=== PATIENT | female | born 1995 | race Caucasian/White ===

== ENCOUNTER 2019-11-08 12:58 | Outpatient (CLI) | payer OTHER, SELFPAY ==
--- NOTE | ~2019-11-08 | XR_ITS ---
EXAMINATION: XR elbow LT min 3V DATE: 11/08/2019 13:28 INDICATION: Left elbow pain and numbness. TECHNIQUE: 4 views of left elbow were obtained. COMPARISON: None. FINDINGS: Bone alignment is normal. No fracture. Joint spaces are well maintained. There is no elbow joint effusion. IMPRESSION: 1. Normal left elbow. Reviewed, dictated and finalized at location A. BILITATION CASEWORKER IMPRESSION: 1. Normal left elbow.
== END 2019-11-08 12:59 | disposition home or self-care (01) ==
LOC: CHSIMG 13:03
PROVIDERS: PCP Internal Medicine; Visit Provider Nurse Practitioner Family
DX: M25.522 Pain in left elbow (principal); R20.0 Anesthesia of skin
CPT/HCPCS: 73080

== ENCOUNTER 2019-12-07 13:19 | Outpatient (CLI) | payer OTHER, SELFPAY ==
--- NOTE | 2019-12-07 13:45 | ECHO_ITS ---
Patient Info Name: Lisbet Almanza Age: 24 years : 1995 Gender: Female Ht: 67 in Wt: 150 lbs BSA: 1.80 m2 HR: 53 bpm BP: 104 / 71 mmHg Technical Quality: Good Exam Date: 12/07/2019 12:50 PM Exam Location: [facility] Patient Status: Outpatient Admit Date: 12/07/2019 Staff Ordering Physician: Bimal Kim MD Electrical Panel Builder: Steve Morales RDCS, RT Attending Provider: Bimal Kim MD Referring Physician: Julio ESCAMILLA; Exam Type: CA echo doppler color flow Study Info Indications G45.8 - Other transient cerebral ischemic attacks and related syndromes Complete two-dimensional, color flow and Doppler transthoracic echocardiogram is performed. Summary 1. Left ventricular chamber dimension is normal. 2. Left ventricular systolic function is normal, estimated at 55-60%. 3. The left ventricular diastolic function is normal. 4. E/e' 5 is not elevated. 5. Global longitudinal strain is slightly abnormal at -16.7%. 6. There is trace pulmonic regurgitation. Left Ventricle E/e' 5 is not elevated. Global longitudinal strain is slightly abnormal at -16.7%. Left ventricular chamber dimension is normal. Left ventricular systolic function is normal, estimated at 55-60%. The left ventricular diastolic function is normal. Right Ventricle Right ventricular chamber dimension is normal. Right ventricular systolic function is normal. Left Atria Left atrial chamber dimension is normal. Right Atria Right atrial chamber dimension is normal. Aortic Valve The aortic valve is trileaflet. There is no aortic valve stenosis. There is no aortic valve regurgitation. Pulmonic Valve There is trace pulmonic regurgitation. Mitral Valve There is no mitral valve stenosis. There is no mitral valve regurgitation. Tricuspid Valve There is no tricuspid valve regurgitation. Pericardium/Pleural There is no pericardial effusion. Inferior Vena Cava Normal inferior vena cava with >50% collapse upon inspiration consistent with normal right atrial pressure, 5 mmHg. Aorta The aortic root size at the sinus of Valsalva is normal. Left Ventricular Outflow Tract Name Value Normal LVOT 2D LVOT Diameter 1.9 cm LVOT Doppler LVOT Peak Velocity 109 cm/s LVOT Peak Gradient 5 mmHg LVOT Mean Gradient 2 mmHg LVOT VTI 22 cm LVOT VTI/AV VTI Ratio 1.0 LVOT Stroke Volume 63 ml Pulmonic Valve Name Value Normal PV Doppler PV Peak Velocity 90 cm/s PV Peak Gradient 3 mmHg Mitral Valve Name Value Normal
== END 2019-12-07 13:20 | disposition home or self-care (01) ==
PROVIDERS: PCP Internal Medicine; Visit Provider Internal Medicine
DX: G45.9 Transient cerebral ischemic attack, unspecified (principal)
CPT/HCPCS: 93306

== ENCOUNTER 2019-12-27 14:45 | Outpatient (CLI) | payer OTHER, MEDICARE, SELFPAY ==
--- NOTE | ~2019-12-27 | MR_ITS ---
EXAMINATION: MR brain IAC wo/w con EXAM DATE: 12/27/2019 16:30 INDICATION: Transient episode of left hemiparesis. TECHNIQUE: Magnetic resonance imaging (MRI) of the brain/brain stem obtained without contrast. Sagit lori T1, axial diffusion, gradient echo (T2*), T1, T2, FLAIR sequences obtained. Patient was then inj ected with 10 cc intravenous Multihance contrast. Axial and coronal postcontrast T1 weighted sequence s obtained. There is no prior study for comparison. FINDINGS: There are about 8 scattered punctate subcortical T2 hyperintensities, a non-specific findin g with differential diagnosis including premature chronic small vessel ischemic disease (especially i f the patient has cardiovascular risk factors), migraine headaches, demyelinating disease such as mul tiple sclerosis or acute disseminated encephalomyelitis (ADEM), vasculopathy, lyme's disease or react victor m astrocytosis (gliosis) secondary to nonspecific etiology. There are no areas of restricted diffusion to suggest acute infarction. There is no acute hemorrhage seen on the T2*, a hemosiderin sensitive sequence. No intraparenchymal brain mass. The ventricles a re normal in size. There are no extra-axial collections. Flow voids are seen in the cerebral arteri es on the T2-weighted sequences consistent with their expected patency. The orbits are unremarkable. Soft tissue is unremarkable. There are no areas of abnormal enhancement on the post contrast image s. IMPRESSION: Scattered tiny nonspecific subcortical white matter hyperintensities. Reviewed, dictated and finalized at location A. IMPRESSION: Scattered tiny nonspecific subcortical white matter hyperintensitie s.
== END 2019-12-27 14:46 | disposition home or self-care (01) ==
LOC: CHSIMG 14:47
PROVIDERS: PCP Internal Medicine; Visit Provider Internal Medicine
DX: G45.9 Transient cerebral ischemic attack, unspecified (principal)
CPT/HCPCS: 70553; A9577

== ENCOUNTER 2020-09-05 11:58 | Outpatient (CLI) | payer MEDICARE, SELFPAY ==
[2020-09-05 16:30] LABS: SARS-CoV-2 Ag Negative (Negative)
== END 2020-09-05 11:59 | disposition home or self-care (01) ==
LOC: CHSLAB 12:01
PROVIDERS: PCP Internal Medicine; Visit Provider Internal Medicine
DX: R51.9 Headache, unspecified (principal); R09.89 Other specified symptoms and signs involving the circulatory and respiratory systems; Z20.828 Contact with and (suspected) exposure to other viral communicable diseases
CPT/HCPCS: 87426

== ENCOUNTER 2020-12-13 10:29 | Outpatient (CLI) | payer MEDICARE, OTHER, SELFPAY ==
--- NOTE | ~2020-12-13 | US_ITS ---
EXAMINATION: US soft tissue head and neck DATE: 12/13/2020 11:30 INDICATION: Neck mass. TECHNIQUE: Multiple grayscale and Doppler ultrasound images of the neck were obtained. COMPARISON: None FINDINGS: There is no abnormal mass or lymphadenopathy in the patient's area of concern in the anteri or neck. IMPRESSION: 1. No abnormal mass or lymphadenopathy in the patient's area of concern. Reviewed, dictated and finalized at location A.
== END 2020-12-13 10:30 | disposition home or self-care (01) ==
PROVIDERS: PCP Internal Medicine; Visit Provider Internal Medicine
DX: R22.1 Localized swelling, mass and lump, neck (principal)
CPT/HCPCS: 76536

== ENCOUNTER 2021-12-19 15:58 | Outpatient (CLI) | payer MEDICARE, SELFPAY ==
--- NOTE | ~2021-12-19 | XR_ITS ---
EXAMINATION: XR chest 2V DATE: 12/19/2021 16:19 INDICATION: Shortness of breath TECHNIQUE: PA and lateral views of the chest were obtained. COMPARISON: None FINDINGS: The lungs are clear with no focal airspace opacities, pulmonary edema, pleural effusion or pneumothor ax. The cardiomediastinal silhouette is normal. Mild thoracic spondylosis. IMPRESSION: 1. No acute cardiopulmonary disease. Reviewed, dictated and finalized at location A.
== END 2021-12-19 15:59 | disposition home or self-care (01) ==
LOC: CHSIMG 16:00
PROVIDERS: PCP Internal Medicine; Visit Provider Nurse Practitioner Family
DX: R06.00 Dyspnea, unspecified (principal)
CPT/HCPCS: 71046

== ENCOUNTER 2021-12-25 07:53 | Outpatient (CLI) | payer MEDICARE, SELFPAY ==
[2021-12-25 08:12] LABS: Basophils Absolute Auto 0.09 K/mm3 (0.00-0.10); Basophils Percent Auto 0.9 % (0.0-1.0); Eosinophils Absolute Auto 0.16 K/mm3 (0.02-0.50); Eosinophils Percent Auto 1.6 % (1.0-6.0); Hematocrit 39.4 % (35.0-49.0); Hemoglobin 13.2 g/dL (12.0-15.0); Immature Granulocyte Absolute 0.03 K/mm3 (0.00-0.00); Immature Granulocyte Percent A 0.3 % (0.0-0.0); Lymphocytes Absolute Auto 2.78 K/mm3 (1.10-4.50); Lymphocytes Percent Auto 28.5 % (18.0-42.0); Mean Corpuscular HGB Conc 33.5 g/dL (32.0-36.0); Mean Corpuscular Hemoglobin 29.9 pg (27.0-31.0); Mean Corpuscular Volume 89.1 fL (78.0-102.0); Monocytes Absolute Auto 0.55 K/mm3 (0.10-0.90); Monocytes Percent Auto 5.6 % (2.0-11.0); Neutrophils Absolute Auto 6.1 K/mm3 (1.7-7.2); Neutrophils Percent Auto 63.1 % (50.0-70.0); Platelet Count Result 292 K/mm3 (150-420); Red Blood Count 4.42 M/mm3 (4.20-5.40); Red Cell Distribution Width 11.9 % (11.6-14.4); White Blood Count 9.7 K/mm3 (4.8-10.8)
[2021-12-25 08:16] LABS: Add Urine Microscopic? YES; Appearance Urine Sl Cloudy (Clear); Bilirubin Urine Negative (Negative); Blood Urine 3+ (Negative); Color Urine Yellow (Yellow); Glucose Urine UA Negative (Negative); Ketones Urine Negative (Negative); Leukocyte Esterase Ur Negative LEU/UL (Negative); Nitrate Urine Negative (Negative); Protein Urine Negative (Negative); Specific Grav Ur >= 1.030 (1.010-1.020); Urobilinogen Urine 0.2 mg/dL (0.2-1.0)
[2021-12-25 08:21] LABS: Squamous Epithelial Cell Urine Few /hpf (Few); WBC Urine 0-3 /hpf (0-3)
[2021-12-25 08:22] LABS: Bacteria Urine 2+ /hpf
[2021-12-25 09:22] LABS: Alanine Aminotransferase 23 U/L (14-59); Albumin Level 3.9 g/dL (3.4-5.0); Alkaline Phosphatase 69 U/L (46-116); Anion Gap 10 mmol/L (8-16); Aspartate Amino Transferase 18 U/L (15-37); Bilirubin,Total 0.4 mg/dL (0.00-1.00); Blood Urea Nitrogen 15 mg/dL (7-18); Calcium 8.8 mg/dL (8.5-10.1); Carbon Dioxide 25 mmol/L (21-32); Chloride 103 mmol/L (98-108); Cholesterol 169 mg/dL (0-200); Estimated Glomerular Filt Rate > 60; Glucose 85 mg/dL (70-99); HDL Direct 48 mg/dL (40-60); LDL Cholesterol Calculated 111 mg/dL (<130); Osmolality Calculated 285 mOsm/kg (285-295); Potassium 4.4 mmol/L (3.5-5.1); Sodium 138 mmol/L (136-145); Thyroid Stimulating Hormone 0.93 uIU/mL (0.36-3.74); Total Protein 7.6 g/dL (6.4-8.2); Triglycerides 50 mg/dL (0-150)
== END 2021-12-25 07:54 | disposition home or self-care (01) ==
LOC: CHSCARD 07:57
PROVIDERS: PCP Internal Medicine; Visit Provider Nurse Practitioner Family
DX: R06.00 Dyspnea, unspecified (principal); J31.0 Chronic rhinitis; F34.1 Dysthymic disorder; Z13.6 Encounter for screening for cardiovascular disorders
CPT/HCPCS: 36415; 80053; 80061; 81001; 84439; 84443; 85025; 94060; 94726; 94729

== ENCOUNTER 2022-01-30 09:53 | Outpatient (CLI) | payer MEDICARE, SELFPAY ==
[2022-01-30 10:23] LABS: Basophils Absolute Auto 0.05 K/mm3 (0.00-0.10); Basophils Percent Auto 0.7 % (0.0-1.0); Eosinophils Absolute Auto 0.13 K/mm3 (0.02-0.50); Eosinophils Percent Auto 1.9 % (1.0-6.0); Hematocrit 35.5 % (35.0-49.0); Immature Granulocyte Absolute 0.01 K/mm3 (0.00-0.00); Immature Granulocyte Percent A 0.1 % (0.0-0.0); Lymphocytes Absolute Auto 2.07 K/mm3 (1.10-4.50); Lymphocytes Percent Auto 29.9 % (18.0-42.0); Mean Corpuscular HGB Conc 33.8 g/dL (32.0-36.0); Mean Corpuscular Hemoglobin 30.1 pg (27.0-31.0); Mean Platelet Volume 9.5 fl (9.2-11.8); Monocytes Absolute Auto 0.38 K/mm3 (0.10-0.90); Monocytes Percent Auto 5.5 % (2.0-11.0); Neutrophils Absolute Auto 4.3 K/mm3 (1.7-7.2); Neutrophils Percent Auto 61.9 % (50.0-70.0); Platelet Count Result 249 K/mm3 (150-420); Red Blood Count 3.99 M/mm3 (4.20-5.40); Red Cell Distribution Width 11.9 % (11.6-14.4); White Blood Count 6.9 K/mm3 (4.8-10.8)
[2022-01-30 10:36] LABS: D Dimer 0.45 mg/L (0.19-0.50)
[2022-01-30 10:51] LABS: Creatine Kinase 45 U/L (26-192); Creatine Kinase MB < 0.50 ng/mL (0.00-5.00); Troponin I 9.4 ng/L (0.00-60.4)
[2022-01-30 10:52] LABS: CRP < 0.2 mg/dL (0.0-0.9)
[2022-02-02 18:04] LABS: H pylori, Urea Breath NOT DETECTED (NOT DETECTED)
== END 2022-01-30 09:54 | disposition home or self-care (01) ==
LOC: CHSLAB 09:55
PROVIDERS: PCP Internal Medicine; Visit Provider Nurse Practitioner Family
DX: R06.02 Shortness of breath (principal); R07.9 Chest pain, unspecified; K21.9 Gastro-esophageal reflux disease without esophagitis
CPT/HCPCS: 36415; 82550; 82553; 83013; 84484; 85025; 85380; 86140

== ENCOUNTER 2022-03-17 00:53 | Day surgery (SDC) | payer MEDICARE, SELFPAY ==
[2022-03-02 14:48] VITALS: BMI 29.7
[2022-03-17 07:56] VITALS: BP 109/58; PULSE 86; RESP 18; TEMP 36.4; O2SAT 100; BMI 30.3
[2022-03-17] MEDS: LACTATED RINGERS 1,000 ML 150 ML IV CONT (08:06)
--- NOTE | 2022-03-17 08:12 | WPDANESEPPF ---
Anes - Initial Pre Proc Eval Procedure: Operation Date: 03/17/22 09:00 Proposed Procedures p Esophagogastroduodenoscopy - Steve Joiner MD Date/Time: 03/17/22 08:12 Surgeon: Steve Joiner MD Pre Op Diagnosis: GERD Patient Data Age: 27 Gender: F Height: 1.7 m Weight: 87.8 kg Last Vital Signs Temp 36.4 C L 03/17/22 07:56 Pulse 86 03/17/22 07:56 Resp 18 03/17/22 07:56 BP 109/58 L 03/17/22 07:56 Pulse Ox 100 03/17/22 07:56 O2 Del Method Room Air 03/17/22 07:56 Allergies Allergy/AdvReac Type Severity Reaction Status Date / Time No Known Allergies Allergy Verified 03/17/22 07:55 Home Medications Medication Instructions Recorded Confirmed Type albuterol sulfate 90 mcg/actuation 1 inh inhalation Q4-6H PRN 03/02/22 03/02/22 History aerosol inhaler Shortness Of Breath cetirizine 10 mg tablet (Zyrtec) 10 mg PO DAILY 03/02/22 03/02/22 History fluoxetine 20 mg capsule (Prozac) 20 mg PO DAILY 03/02/22 03/02/22 History fluticasone 100 mcg-salmeterol 50 2 inh inhalation BID 03/02/22 03/02/22 History mcg/dose blistr powdr for inhalation omeprazole magnesium 20 mg 40 mg PO DAILY 03/02/22 03/02/22 History tablet,delayed release (Prilosec OTC) clonazepam 0.25 mg disintegrating 0.25 mg PO DAILY PRN Anxiety 03/17/22 03/17/22 History tablet Patient hx anesthesia problems: none Family hx anesthesia problems: none Results Review: All pre-operative results and documents have been reviewed as part of the pre-operative evaluation. [facility] Past Medical History Medical History (Updated 03/17/22 @ 08:16 by Kofi León MD) Asthma Surgical History Surgical History (Updated 03/17/22 @ 08:16 by Kofi León MD) Hx of tonsillectomy Social History Social History Smoking status: Never smoker Living arrangements: with family Spiritual care concerns: No Anes - Eval Final PreProcedure Day of Procedure 03/17/22 08:12 Patient weight: obese Heart: regular rate and rhythm Lungs: clear to auscultation Neurological: alert and oriented Last oral intake: >/= 8 hours ASA classification: II Emergent: no Anesthetic plan: proceed Anesthesia type and monitoring: general GIVS and standard monitoring Results Review: All pre-operative results and documents have been reviewed as part of the pre-operative evaluation. Informed Consent: The patient's anesthetic plan and its attendant risks and benefits were discussed with the patient/family/POA. Questions were solicited and answers provided to the satisfaction of the patient/family/POA.
--- NOTE | 2022-03-17 08:52 | PM.HPGS ---
History of Present Illness History of Present Illness Consent: Risks, benefits, and alternatives have been discussed and questions answered. Patient agrees to proceed with procedure. Chief complaint: GERD Narrative: Lisbet Almanza is a 27 year old female with chest pressure and lump in throat, sometimes also feeling that is hard to breathe, started using omeprazole ~ 3 weeks ago with minimal relief, never had egd Review of Systems Constitutional: Constitutional: Denies headache(s) and Denies weakness Eyes: Eyes: Denies blurry vision ENT: Reports Normal hearing present, Denies headache(s) and Denies neck pain Cardiovascular: Cardiovascular: Denies chest pain and Denies dyspnea Respiratory: Respiratory: Denies dyspnea Gastrointestinal: Gastrointestinal: Reports no additional gastrointestinal complaints Genitourinary: Genitourinary: Denies dysuria Musculoskeletal: Musculoskeletal: Denies neck pain Integumentary/Breasts: Skin/Breast: Denies dry skin Neurologic: Reports Normal hearing present, Denies headache(s) and Denies weakness Psychiatric: Psychiatric: Denies anxiety Endocrine: Endocrine: Denies change in body appearance Hematologic/Lymphatic: Hematologic/Lymphatic: Denies easy bleeding Allergic/Immunologic: Allergic/Immunologic: Denies urticaria PMF Past Medical History Medical History (Updated 03/17/22 @ 08:52 by Steve Joiner MD) Asthma Chest pressure Surgical History Surgical History (Updated 03/17/22 @ 08:16 by Kofi León MD) Hx of tonsillectomy Social History Social History Smoking status: Never smoker Living arrangements: with family Spiritual care concerns: No Meds Home Medications and Allergies Home Medications Medication Instructions Recorded Confirmed Type albuterol sulfate 90 mcg/actuation 1 inh inhalation Q4-6H PRN 03/02/22 03/02/22 History aerosol inhaler Shortness Of Breath cetirizine 10 mg tablet (Zyrtec) 10 mg PO DAILY 03/02/22 03/02/22 History fluoxetine 20 mg capsule (Prozac) 20 mg PO DAILY 03/02/22 03/02/22 History fluticasone 100 mcg-salmeterol 50 2 inh inhalation BID 03/02/22 03/02/22 History mcg/dose blistr powdr for inhalation omeprazole magnesium 20 mg 40 mg PO DAILY 03/02/22 03/02/22 History tablet,delayed release (Prilosec OTC) clonazepam 0.25 mg disintegrating 0.25 mg PO DAILY PRN Anxiety 03/17/22 03/17/22 History tablet Allergies Allergy/AdvReac Type Severity Reaction Status Date / Time No Known Allergies Allergy Verified 03/17/22 07:55 Vital Signs Vital Signs - 24 hr 03/17/22 07:56 Temperature 97.5 F L Pulse Rate 86 Respiratory Rate 18 Blood Pressure 109/58 L Pulse Oximetry 100 Oxygen Delivery Room Air Exam Const: General: comfortable and no acute distress HENMT: General nose exam: Normal nares present Eyes: General: appearance normal, both eyes and all related structures Neck: Neck: no JVD Resp: Auscultation: clear to auscultation bilaterally Cardio: Rate: regular rate Rhythm: regular rhythm GI: Inspection: non-distended GI Palp: Yes Soft to palpation Skin: General skin exam: normal color Neuro: General: gait normal Speech: normal speech Extrem: General: normal to inspection Psych: Mental Status: mental status grossly normal Assessment and Plan Assessment and plan (1) Chest pressure: Code(s): R07.89 - Other chest pain Status: Acute Assessment and Plan: ? atypical gerd symptom, will do egd with bx
[2022-03-17] MEDS: BENZOCAINE (*SP) 60 ML SPRAY CAN (HURRICAINE) 1 SPRAY MUCOUS MEM (08:57)
[2022-03-17 09:10] VITALS: BP 96/57; PULSE 73; RESP 16; O2SAT 100
[2022-03-17 09:20] VITALS: BP 99/60; PULSE 73; RESP 16; O2SAT 100
[2022-03-17 09:30] VITALS: BP 112/73; PULSE 89; RESP 18; O2SAT 100
== END 2022-03-17 09:33 | disposition home or self-care (01) ==
PROVIDERS: PCP Internal Medicine; Visit Provider Internal Medicine Gastroenterology
PROC: 0DJ08ZZ Inspection of Upper Intestinal Tract, Via Natural or Artificial Opening Endoscopic (ICD-10-PCS; CPT 43235; principal; 2022-03-17 09:00)
DX: K29.50 Unspecified chronic gastritis without bleeding (principal); K21.9 Gastro-esophageal reflux disease without esophagitis; J45.909 Unspecified asthma, uncomplicated; Z79.51 Long term (current) use of inhaled steroids; E66.9 Obesity, unspecified; Z68.30 Body mass index [BMI] 30.0-30.9, adult
CPT/HCPCS: 43239; 88305; J2704; J7120

== ENCOUNTER 2022-06-05 13:00 | Outpatient (CLI) | payer MEDICARE, SELFPAY ==
--- NOTE | ~2022-06-05 | CT_ITS ---
EXAMINATION: CT sinus wo con DATE: 06/05/2022 13:15 INDICATION: Chronic sinusitis, drainage for one month. Headache. TECHNIQUE: Computed tomography (CT) of the paranasal sinuses was performed without contrast. Iterativ e reconstruction technique was employed. Exam dose: 266.38 mGy-cm total exam DLP. COMPARISON: None FINDINGS: There is moderately prominent soft tissue swelling of the nasal turbinates. Melanie bullosa of left middle nasal turbinate. The ostiomeatal units are patent. The paranasal sinuses are normally developed and aerated. Mastoid air cells are well-developed and aerated with exception of minimal opacification at the infer ior aspect of the left mastoids IMPRESSION: . Melanie bullosa of left middle nasal turbinate Patent paranasal sinuses, ostiomeatal units Reviewed, dictated and finalized at Location A. Reviewed, dictated and finalized at location A.
== END 2022-06-05 13:01 | disposition home or self-care (01) ==
LOC: CHSIMG 13:01
PROVIDERS: PCP Internal Medicine; Visit Provider Internal Medicine
DX: J32.9 Chronic sinusitis, unspecified (principal)
CPT/HCPCS: 70486

== ENCOUNTER 2022-10-27 08:33 | Outpatient (CLI) | payer MEDICARE, SELFPAY ==
--- NOTE | ~2022-10-27 | XR_ITS ---
MODIFIED ESOPHAGRAM HISTORY: Dysphagia. TECHNIQUE: Modified barium esophagram was performed on 10/27/2022. I administered fluoroscopy and perf ormed the exam with speech pathologist. Patient was seated for lateral fluoroscopic imaging for maryan stion of thin liquids, pudding, solids and quantified amounts, followed by thin liquids in uncontroll ed amounts. This was recorded on tape. A single fluoroscopic spot image was also recorded. The DAP fo r this procedure was 1.074 Gycm2. The amount of fluoroscopy time used during this procedure was 1.8 m inutes. FINDINGS: Oral stage: Adequate function. Pharyngeal stage: Adequate function. Cervical/esophageal stage: Adequate function. IMPRESSION: Patient tolerated regular consistency oral feedings in the upright position. Please maxwell elate with speech pathologist findings and specific feeding recommendations. Reviewed, dictated and finalized at location A. HT GUESSER IMPRESSION: Patient tolerated regular consistency oral feedings in the upright position. Please correlate with speech pathologist findings and specific feedi ng recommendations.
--- NOTE | ~2022-10-27 | XR_ITS ---
EXAMINATION: XR UGIAC wo kub DATE: 10/27/2022 09:53 INDICATION: Dysphagia. Shortness of breath. TECHNIQUE: The patient drank thick barium, gas-producing crystals, and thin barium. Fluoroscopic spot radiographs of the hypopharynx, esophagus, stomach and proximal small bowel were obtained. Fluorosco py exposure time was 2.1 minutes. A total of 932 fluoroscopic images were obtained. COMPARISON: None. FINDINGS: The pharynx is symmetric and without evidence of mass lesion or mucosal irregularity. The esophagus i s normal without mass or stricture. Esophageal motility is normal. There is no hiatal hernia. There w as no gastroesophageal reflux with provocative maneuvers. The stomach and proximal small bowel are no rmal. IMPRESSION: 1. Normal esophagram and upper GI study Reviewed, dictated and finalized at location A. [facility]
--- NOTE | 2022-10-27 12:21 | BUSTOPEVAL1 ---
Assessment and note entered by Brandi Gama WATER ENGINEER Evaluation Information Assessment Status Evaluation Diagnosis Dysphagia Subjective Information Patient reported that she has been having difficulty managing phylum and has had pain in her chest. She does not report any difficulties swallowing food/fluids. Reported Pain Level Pain Score 0: Self Report Assessment ST Clinical Summary Patient was referred by her primary physician for a modified barium swallow study due to recent difficulties with phylum and pain in chest. Patient reported that she did not have difficulties swallowing food or fluid. Patient was presented with thin barium, pudding thick barium, and abel cracker with barium. Patient presented with WFL labial seal, lingual strength/ coordination and mandibular strength for bolus formation and propulsion. No penetration or aspiration was noted throughout the study. Patient presented with the need for subsequent swallows to clear thin fluid bolus. Good laryngeal elevation and excursion was noted along with good epiglottic inversion. Patient presents with adequate/functional oropharyngeal phases of deglutition with no further testing or recommendations needed. Dicussion regarding possibility of problems being caused by acid reflux. Discussion regarding possibility of exploring other medication to treat acid reflux. Plan of Care Treatment Frequency and Evaluation only Duration These treatments will address the objective and functional deficits as defined above. The patient will be advanced safely and appropriately in order for the patient to progress towards his/her prior level of function. Additional exercises will be introduced and as well as a comprehensive home exercise program upon discharge, if needed, ?to ensure carryover of functional gains achieved in the clinic. This treatment plan has been reviewed and agreement upon by the patient.
== END 2022-10-27 08:34 | disposition home or self-care (01) ==
LOC: CHSIMG 08:34
PROVIDERS: PCP Internal Medicine; Visit Provider Internal Medicine
DX: R13.10 Dysphagia, unspecified (principal)
CPT/HCPCS: 74240; 74246; 92611